=== PATIENT | female | born 1940 | race Caucasian/White ===

== ENCOUNTER 2017-02-21 12:23 | Emergency (ER) | payer MEDICARE ==
[~2017-02-21 12:23] MED LIST: ADVAIR 100-501 EACH IH; ADVAIR 1001 DISK W/D; ADVAIR 10028 BLISTER INH; ALDACTONE25 M1 PO; AMBIEN10 M1 PO; AMBIEN10 MG; AMBIEN10 MG PO; AMBIEN5 MG PO; ASPIRIN325 M3 PO; ATORVASTATIN CA20 M1 PO; AUGMENTIN 875-11 TAB PO; BISOPROLOL FUMA10 M1 PO; CALCIUM PO; CATAPRES0.1 MG PO; CLONIDINE HCL0.1 MG PO; COLACE100 MG PO; COMBIVENT INH; COMBIVENT RESPIM4 G1 INH; COMBIVENT1 PUFF INH; COUMADIN2.5 MG PO; CYMBALTA20 MG PO; CYMBALTA60 M1 PO; CYMBALTA60 MG PO; DILTIAZEM 24HR120 MG PO; DILTIAZEM 24HR180 M3 PO; DILTIAZEM 24HR180 MG PO; DULCOLAX10 MG/SUPP PR; DULCOLAX5 M1 PO; DULERA 200 MCG/13 G1 INH; DUONEB 2.5-0.5MG3 ML; ELAVIL50 MG; FLEXERIL5 MG PO; FUROSEMIDE40 M2 PO; GABAPENTIN300 MG PO; H PO; HYDROCODON-ACE1 EA15 PO; HYDROCODONE/APA1 TAB PO; ICAPS TABLET1 TAB.S PO; KEFLEX500 MG PO; LASIX20 M1 PO; LASIX40 M1 PO; LEVOFLOXACIN750 MG PO; LISINOPRIL10 MG; LISINOPRIL20 M1 PO; LISINOPRIL20 MG PO; LISINOPRIL40 M1 PO; LOTEMAX5 M1 BOTH EYES; LOTEMAX5 ML EACH EYE; LOVENOX40 MG/0.4 SC; MAGNE PO; MAGNESIUM OXID400 M1 PO; MIRALAX17 G1 PO; MIRALAX17 G2 PO; MOBIC15 M2 PO; MS CONTIN30 MG PO; MUCINEX600 M1 PO; MUCINEX600 MG PO; NEURONTIN300 MG PO; NEURONTIN600 MG; NORCO 5/325 TAB1 TAB PO; NORVASC10 M2 PO; OMEPRAZOLE20 M3 PO; OXYCONTIN PO; OXYCONTIN10 M1 PO; OXYCONTIN10 M2 PO; OXYCONTIN10 MG PO; OXYCONTIN15 M1 PO; PERCOCET 10-321 EACH PO; PERCOCET 5/3251 TAB PO; PREDNISONE5 MG PO; PROZAC20 MG; SENNA PLUS TAB1 EACH PO; SENNA-S TABLET1 EAC3 PO; SINEMET 25-1001 EAC1 PO; SINEMET 25-1001 TA1 PO; SINEMET 25-2501 EACH PO; SINEMET ER 25/11 TAB PO; SINGULAIR10 M1 PO; SINGULAIR10 MG; SINGULAIR10 MG PO; SOMA; SOMA250 MG PO; TIZANIDINE; TRAMADOL HCL50 M2 PO; TRAZODONE HCL100 M1 PO; TYLENOL EXTRA500 MG; TYLENOL PM EX-1 EACH PO; TYLENOL325 M1 PO; TYLENOL325 M2 PO; ULTRAM50 M1 PO; XANAX0.5 M1 PO; XARELTO10 M1 PO; ZEBETA5 M2 PO; [UNRECOGNIZED DRUG - OTHER] PO
[2017-02-21] MEDS ORDERED: ROXICODONE5 M2 PO (16:59)
[2017-02-21] MEDS ORDERED: ZANAFLEX4 M2 PO (17:00)
[2017-02-21] MEDS ORDERED: BUSPIRONE HCL10 M2 PO (17:00)
[2017-02-21] MEDS ORDERED: NEURONTIN300 M1 PO (17:01)
[2017-02-21] MEDS ORDERED: LOMOTIL 2.5-0.1 EACH PO (17:02)
[2017-02-21] MEDS ORDERED: LOTEMAX5 M1 OP (17:10)
[2017-02-21] MEDS ORDERED: ZYRTEC10 M7 PO (17:25)
== END 2017-02-21 18:30 ==
LOC: EDMED 12:23
DX: S22.31XA Fracture of one rib, right side, initial encounter for closed fracture (principal); I11.0 Hypertensive heart disease with heart failure; I50.9 Heart failure, unspecified; E78.5 Hyperlipidemia, unspecified; W01.0XXA Fall on same level from slipping, tripping and stumbling without subsequent striking against object, initial encounter
CPT/HCPCS: J1200; J2270; J2405